=== PATIENT | female | born 1995 | race Caucasian/White ===

== ENCOUNTER → 2018-08-12 | Outpatient (REF) | payer BC | LOC: M LAB REF 19:25 | DX: R30.0 Dysuria (principal) | CPT/HCPCS: 87086 ==

== ENCOUNTER → 2020-07-13 | Outpatient (REF) | payer OTHER | LOC: M LAB REF 12:47 | PROVIDERS: ATTEND Obstetrics & Gynecology | DX: Z34.83 Encounter for supervision of other normal pregnancy, third trimester (principal) ==

== ENCOUNTER → 2020-07-27 | Outpatient (REF) | payer OTHER | LOC: M LAB REF 12:15 | PROVIDERS: ATTEND Obstetrics & Gynecology | DX: Z34.83 Encounter for supervision of other normal pregnancy, third trimester (principal); Z3A.00 Weeks of gestation of pregnancy not specified ==

== ENCOUNTER 2020-08-23 06:59 | Inpatient (IN) | payer BC, OTHER ==
[~2020-08-23] VITALS: Ht 157.5 cm; Wt 76.8 kg
[2020-08-23] VITALS (55 sets, daily range): BP systolic 92–153; BP diastolic 56–100
[2020-08-23 08:46] LABS: HEMATOCRIT 33.5 % (36.0-47.0); HEMOGLOBIN 10.5 g/dl (12.0-15.5); MEAN CORPUSCULAR HEMOGLOBIN 28.3 pg (27.0-33.0); MEAN CORPUSCULAR HGB CONC 31.3 g/dl (32.0-36.5); MEAN CORPUSCULAR VOLUME 90.3 fl (80.0-96.0); PLATELET COUNT, AUTOMATED 242 10^3/uL (150-450); RED BLOOD COUNT 3.71 10^6/uL (4.00-5.40); WHITE BLOOD COUNT 11.5 10^3/uL (4.0-10.0)
[2020-08-23 09:04] LABS: ALT/SGPT 12 U/L (12-78); BILIRUBIN,TOTAL 0.2 MG/DL (0.2-1.0); CREATININE FOR GFR 0.64 MG/DL (0.55-1.30); GLOMERULAR FILTRATION RATE > 60.0 (>60); LDH LACTATE DEHYDROGENASE 191 U/L (84-246); URIC ACID 2.5 MG/DL (2.6-6.0)
[2020-08-23 10:19] LABS: CREATININE,RANDOM URINE 38.7 MG/DL; TOTAL PROTEIN,RANDOM URINE 17.2 MG/DL (0.0-12.0)
[2020-08-23] MEDS ORDERED: OXYTOCIN DRIP 30 UNITS in IV 1 EA IV SCH ×2 (11:30→21:32)
[2020-08-23] MEDS: LR 1,000 ML IV SCH ×2 (12:34→17:16)
--- NOTE | 2020-08-23 13:41 | HPE ---
HISTORY AND PHYSICAL DATE OF ADMISSION: 08/23/2020 HISTORY OF PRESENT ILLNESS: Chloe is a 24-year-old 1 para 0 who presents to Labor and Delivery today with a report of uncomfortable contractions every 5 to 6 minutes that started at 0200. She denies vaginal bleeding. No leakage of fluid. The fetus has been active. Her care was initiated at [facility] in the first trimester with a transfer of care to [facility] in the third trimester and again a transfer of care in the third trimester to [facility]. course complicated by today's presentation of elevated blood pressure. OBSTETRIC HISTORY: Primigravida. OBSTETRIC LABS: AB positive, antibody screen negative. Syphilis negative. Hep B surface antigen negative. Hepatitis C antibody negative. Gonorrhea and chlamydia negative. Cystic fibrosis carrier screening negative. Quad screen normal. No HIV available for review. Urine culture negative. GBS negative. PAST MEDICAL HISTORY: Noncontributory. PAST SURGICAL HISTORY: None. FAMILY HISTORY: Noncontributory. SOCIAL HISTORY: The patient is . Father of the baby is present. She is a nonsmoker. Denies alcohol and drug use. No history of sexually transmitted infections. She denies a history of abuse, physical, sexual and emotional. ALLERGIES: No known drug allergies. CURRENT MEDICATIONS: 1. vitamins. OBJECTIVE: VITAL SIGNS: Upon arrival blood pressure 120/96, 139/100, 122/78, 124/79, 153/96, temperature 98.5, pulse 84, respirations 18. heart rate 140 with moderate variability. Positive accelerations. Negative decelerations. Contractions every 1 to 4. ABDOMEN: Gravid, cephalic presentation. Estimated weight 7 pounds. GENITALIA: Sterile vaginal exam at 0800, 1 cm dilated, 75% effaced, -2 station. Sterile vaginal exam repeated three hours later at 1100, 2 cm dilated, 80 effaced, -2 station. LABORATORY DATA: Preeclamptic labs returned normal results, hemoglobin 10.5, hematocrit 33.5, platelets 242,000. Spot urine for protein 0.44. ASSESSMENT: Intrauterine at 39 and 6/7 weeks, heart rate Category 1, preeclampsia. PLAN: Admit the patient to Labor and Delivery. Augment her labor with IV Pitocin, a clear liquid diet. The risks, benefits and alternatives have been reviewed with the patient. All of her questions have been answered. She has verbally consented for emergency surgery, blood products if they are necessary. I do anticipate active labor and a spontaneous vaginal delivery.
[2020-08-23 14:28] LABS: HIV 1&2 SCREEN CENTAUR NEGATIVE (NEGATIVE)
[2020-08-23] MEDS ORDERED: FENTANYL 2MCG/ML ROPIVACAINE 0.2% IN 0.9% NACL 100ML IVBAG As Ordered ONE (15:45)
[2020-08-23] MEDS ORDERED: diphenhydrAMINE 50MG/ML VIAL (J1200) IV PRN (17:00)
[2020-08-23] MEDS ORDERED: ONDANSETRON 4MG/2ML VIAL IV PRN (17:00)
[2020-08-23] MEDS ORDERED: NALOXONE INJ 0.4MG/1ML VIAL (J2310 PER 1MG) IV PRN (17:00)
[2020-08-23] MEDS ORDERED: EPIDURAL COMMENT XX SCH (17:00)
[2020-08-23] MEDS ORDERED: REFRIGERATOR IV KEYS XX PRN (17:00)
[2020-08-23] MEDS ORDERED: LACTATED RINGER'S 1000 ML IV PRN (17:00)
[2020-08-23] MEDS ORDERED: EPIDURAL/PCA KEYS XX PRN (17:00)
[2020-08-23] MEDS ORDERED: FENTANYL/ROPIVACAINE/NACL BAG 100 ML EPIDURAL SCH (17:00)
[2020-08-23] MEDS: ePHEDrine SULFATE 25 MG/5 ML(5MG/ML) SYRINGE IV PRN ×2 (17:40→18:37)
[2020-08-23] MEDS ORDERED: MEASLES,MUMPS,RUBELLA VACCINE INJ (MMR-II) (90707) SC SCH (21:45)
[2020-08-23] MEDS ORDERED: DOCUSATE SODIUM 100MG CAPSULE PO PRN (21:45)
[2020-08-23] MEDS ORDERED: ACETAMINOPHEN 500 MG TAB PO PRN (21:45)
[2020-08-23] MEDS ORDERED: ACETAMINOPHEN TAB 650MG DOSE (2X325MG) PO PRN (21:45)
[2020-08-23] MEDS ORDERED: BENZOCAINE 20% HEMORRHOIDAL OINTMENT 28GM TUBE TOP PRN (21:45)
[2020-08-23] MEDS ORDERED: IBUPROFEN 600MG TAB PO PRN (21:45)
[2020-08-23] MEDS ORDERED: RHOGAM 300 MCG (1500 IU) INJ (J2790) IM SCH (21:45)
--- NOTE | 2020-08-23 22:18 | DN ---
DELIVERY NOTE DATE OF DELIVERY: 08/23/2020 TIME OF : 2105 DESCRIPTION OF DELIVERY: Chloe is a 24-year-old, 1, para 1, 0, 0, 1 now, who was admitted to labor and delivery in early latent labor, and diagnosed with preeclampsia. I.V. Pitocin was used and labor did ensue. She used an epidural for her labor coping. She reached complete dilation at 2045. She had assisted rupture of small amount of clear odorless fluid at 2052. She pushed to a normal spontaneous vaginal delivery of a live female infant in OA position with restitution to ROT position at 2105. There was a nuchal cord times one, loose, that was reduced manually. The 's shoulders delivered spontaneously and the corpus immediately followed. Her mouth and nares were bulb suctioned, and she was placed on the maternal abdomen, crying and active. The cord was clamped x2 once pulsations ceased and cut by the father of the baby under my direction. A spontaneous expulsion of an intact placenta with three-vessel cord by Schultze mechanism was at 2118. Uterine hemostasis achieved with I.V. Pitocin, rapid infusion and uterine fundal massage. Estimated blood loss 300 mL. Perineum and vagina inspected, noted to have bilateral labial lacerations. Lacerations were repaired with 3-0 Vicryl Rapide in the usual fashion. [place] female weighed 6 pounds 10 ounces (3000 grams), Apgars 9 and 9. Mom is going to breastfeed her daughter and the family have named her Astrid. At the close of delivery, lab counts, needle counts and instrument counts were correct and verified.
[2020-08-24 00:05] VITALS: BP 127/80
[2020-08-24 06:00] VITALS: BP 120/76
[2020-08-24 08:30] VITALS: BP 120/76
[2020-08-24] MEDS: PRENATAL VITAMINS CHEWABLE TABLET PO SCH (10:04)
[2020-08-24 17:55] VITALS: BP 124/82
[2020-08-24] MEDS: IBUPROFEN 800 MG TAB PO PRN (18:01)
[2020-08-25 05:55] VITALS: BP 114/71
--- NOTE | 2020-08-25 06:19 | IPNPDOC ---
Progress Note Date of Service: Aug 25, 2020 Day#: 2 Progress Note PPD 2 SUBJECT: Chloe is a 24yo s/p uncomplicated at 2106 on 08/23 after undergoing IOL for pre-E at term. She is doing well day # 2. She has been ambulating, voiding spontaneously without issue and tolerating regular diet. Breast feeding without issue. Reports lochia is like a normal period, tapering. No f/c/n/v/CP/SOB. No TOMPKINS/vision changes/RUQ pain. OBJECTIVE: VITAL SIGNS: Within normal limits, afebrile. Alert and oriented times three. Abdomen: Fundus firm at U-2. Soft, NTTP. Extremities: no pain with palpation of calves ASSESSMENT: Chloe is a 24yo s/p uncomplicated at 2106 on 08/23 after undergoing IOL for pre-E at term. She is doing well day # 2. Vitals within normal limits, afebrile, hemodynamically stable with no evidence of infection. No s/sx of worsening pre-E. PLAN: 1. Discharge to home today. 2. Tylenol and Motrin for pain. 3. Encourage breast feeding and ambulation. 4. Desires Mirena IUD for contraception 5. BP check at [facility] clinic on Friday or Friday of coming week, then routine PP visit in 6 weeks in clinic. 6. Discussed return precautions at length. Elizabeth Delgadillo MD VS, I&O, 24H, Fishbone Vital Signs/I&O Vital Signs Date Time Temp Pulse Resp B/P (MAP) Pulse Ox O2 Delivery O2 Flow Rate FiO2 08/25/20 05:55 98.2 63 18 114/71 (85) I&O- Last 24 Hours up to 6 AM 08/25/20 06:00 Intake Total 700 ml Balance 700 ml Elizabeth Delgadillo MD Aug 25, 2020 06:19
--- NOTE | 2020-08-25 06:25 | DS.PDOC ---
Discharge Summary General Date of Admission Aug 23, 2020 at 11:01 Date of Discharge Aug 25, 2020 Discharge Summary PROCEDURES PERFORMED DURING STAY: spontaneous vaginal delivery ADMITTING DIAGNOSES: 1. pre-eclampsia at term IOL DISCHARGE DIAGNOSES: 1. pre-eclampsia at term IOL 2. delivered COMPLICATIONS/CHIEF COMPLAINT: Admit Pre E. HISTORY OF PRESENT ILLNESS/HOSPITAL COURSE: Chloe is a 24yo s/p uncomplicated at 2106 on 08/23 after undergoing IOL for pre-E at term. She is doing well day # 2. Vitals within normal limits, afebrile, hemodynamically stable with no evidence of infection. No s/sx of worsening pre-E. DISCHARGE MEDICATIONS: Please see below. ALLERGIES: Please see below. PHYSICAL EXAMINATION ON DISCHARGE: VITAL SIGNS: Within normal limits, afebrile. Alert and oriented times three. Abdomen: Fundus firm at U-2. Soft, NTTP. Extremities: no pain with palpation of calves LABORATORY DATA: Please see below. ACTIVITY: As tolerated, vaginal rest 6 weeks DIET: regular DISPOSITION: home DISCHARGE PLAN/INSTRUCTIONS: 1. Discharge to home today. 2. Tylenol and Motrin for pain. 3. Encourage breast feeding and ambulation. 4. Desires Mirena IUD for contraception 5. BP check at [facility] clinic on Friday or Friday of coming week, then routine PP visit in 6 weeks in clinic. 6. Discussed return precautions at length. DISCHARGE CONDITION: Stable TIME SPENT ON DISCHARGE: Greater than 20 minutes. Elizabeth Delgadillo MD Vital Signs/I&Os Vital Signs Date Time Temp Pulse Resp B/P (MAP) Pulse Ox O2 Delivery O2 Flow Rate FiO2 08/25/20 05:55 98.2 63 18 114/71 (85) I&O- Last 24 Hours up to 6 AM 08/25/20 06:00 Intake Total 700 ml Balance 700 ml Allergies Coded Allergies: No Known Allergies (Unverified , 08/23/20) Elizabeth Delgadillo MD Aug 25, 2020 06:25
[2020-08-25] MEDS ORDERED: IBUP80TA PO (06:26)
[2020-08-25] MEDS ORDERED: DOK1CAP7 PO (06:26)
[2020-08-25] MEDS: PRENATAL VITAMINS CHEWABLE TABLET PO SCH (07:51)
[2020-08-25] MEDS: IBUPROFEN 800 MG TAB PO PRN (07:51)
== END 2020-08-25 13:43 | disposition home or self-care (01) | DRG 560 ==
LOC: M LDO 06:59 → M LDI 11:01 → M OBS 08-24 00:02
PROVIDERS: ADMIT Advanced Practice Midwife; ATTEND Advanced Practice Midwife
PROC: 10E0XZZ Delivery of Products of Conception, External Approach (ICD-10-PCS; principal; 2020-08-23)
PROC: 0HQ9XZZ Repair Perineum Skin, External Approach (ICD-10-PCS; 2020-08-23)
PROC: 10907ZC Drainage of Amniotic Fluid, Therapeutic from Products of Conception, Via Natural or Artificial Opening (ICD-10-PCS; 2020-08-23)
DX: O14.94 Unspecified pre-eclampsia, complicating childbirth (principal); O70.0 First degree perineal laceration during delivery; Z3A.39 39 weeks gestation of pregnancy; Z37.0 Single live birth

== ENCOUNTER → 2020-11-23 | Outpatient (REF) | payer BC ==
[~2020-11-23] MED LIST: DOK1CAP7 PO; IBUP80TA PO
== END ==
LOC: M LAB REF 16:33
PROVIDERS: ATTEND Physician Assistant
DX: R50.9 Fever, unspecified (principal)

== ENCOUNTER → 2021-11-22 | Outpatient (CLI) | payer OTHER ==
[~2021-11-22] MED LIST changes: +DOK1CAP4 PO; -DOK1CAP7 PO
[2021-11-22 13:12] LABS: HEMOGLOBIN 13.6 g/dl (12.0-15.5); MEAN CORPUSCULAR HEMOGLOBIN 29.6 pg (27.0-33.0); MEAN CORPUSCULAR VOLUME 87.1 fl (80.0-96.0); PLATELET COUNT, AUTOMATED 200 10^3/uL (150-450); RED BLOOD COUNT 4.59 10^6/uL (4.00-5.40); WHITE BLOOD COUNT 5.1 10^3/uL (4.0-10.0)
[2021-11-22 14:40] LABS: FREE T4 1.18 NG/DL (0.76-1.46); PROGESTERONE 0.26 NG/ML; THYROID STIMULATING HORMONE 1.32 uIU/ML (0.358-3.740)
[2021-11-22 14:47] LABS: GC DNA AMPLIFICATION NEGATIVE (NEGATIVE)
== END ==
LOC: M PLALAB 10:44
PROVIDERS: ATTEND Obstetrics & Gynecology
DX: N93.9 Abnormal uterine and vaginal bleeding, unspecified (principal)

== ENCOUNTER → 2021-11-28 | Outpatient (CLI) | payer OTHER | LOC: M WHC 11-26 07:43 | PROVIDERS: ATTEND Obstetrics & Gynecology | DX: N93.9 Abnormal uterine and vaginal bleeding, unspecified (principal) ==

== ENCOUNTER → 2022-02-06 | Outpatient (CLI) | payer MEDICAID, SELFPAY ==
[2022-02-06 17:37] LABS: BASO % 0.6 % (0.0-1.0); EOS # 0.1 10^3/uL (0.0-0.5); EOS % 1.9 % (0.0-3.0); HEMATOCRIT 37.4 % (36.0-47.0); HEMOGLOBIN 12.6 g/dl (12.0-15.5); LYMPH % 31.6 % (24.0-44.0); MEAN CORPUSCULAR HEMOGLOBIN 29.9 pg (27.0-33.0); MEAN CORPUSCULAR HGB CONC 33.7 g/dl (32.0-36.5); MEAN CORPUSCULAR VOLUME 88.8 fl (80.0-96.0); MONO # 0.6 10^3/uL (0.0-0.8); MONO % 9.6 % (2.0-8.0); NEUTROPHILS # 3.5 10^3/uL (1.5-8.5); PLATELET COUNT, AUTOMATED 254 10^3/uL (150-450); RED BLOOD COUNT 4.21 10^6/uL (4.00-5.40); WHITE BLOOD COUNT 6.3 10^3/uL (4.0-10.0)
[2022-02-06 17:57] LABS: CREATININE,RANDOM URINE 81.4 MG/DL; TOTAL PROTEIN,RANDOM URINE 17.3 MG/DL (0.0-12.0)
[2022-02-06 17:58] LABS: ALT/SGPT 10 U/L (12-78); BILIRUBIN,TOTAL 0.2 MG/DL (0.2-1.0); CREATININE FOR GFR 0.59 MG/DL (0.55-1.30); GLOMERULAR FILTRATION RATE > 60.0 (>60); LDH LACTATE DEHYDROGENASE 168 U/L (84-246)
[2022-02-06 18:47] LABS: HEPATITIS C VIRUS ABY INDEX 0.1 INDEX (<0.8)
[2022-02-06 18:48] LABS: HIV 1&2 SCREEN CENTAUR NEGATIVE (NEGATIVE)
[2022-02-06 19:05] LABS: GC DNA AMPLIFICATION NEGATIVE (NEGATIVE)
== END ==
LOC: M PLALAB 15:49
PROVIDERS: ATTEND Advanced Practice Midwife
DX: O09.291 Supervision of pregnancy with other poor reproductive or obstetric history, first trimester (principal)

== ENCOUNTER → 2022-04-05 | Outpatient (REF) | payer OTHER | LOC: M SFHCWAGY 16:41 | PROVIDERS: ATTEND Advanced Practice Midwife | DX: O09.292 Supervision of pregnancy with other poor reproductive or obstetric history, second trimester (principal) ==

== ENCOUNTER → 2022-06-13 | Outpatient (REF) | payer OTHER ==
[2022-06-13 13:15] LABS: HEMATOCRIT 32.3 % (36.0-47.0); HEMOGLOBIN 10.8 g/dl (12.0-15.5); MEAN CORPUSCULAR HEMOGLOBIN 31.4 pg (27.0-33.0); MEAN CORPUSCULAR HGB CONC 33.4 g/dl (32.0-36.5); MEAN CORPUSCULAR VOLUME 93.9 fl (80.0-96.0); PLATELET COUNT, AUTOMATED 249 10^3/uL (150-450); RED BLOOD COUNT 3.44 10^6/uL (4.00-5.40); WHITE BLOOD COUNT 11.1 10^3/uL (4.0-10.0)
[2022-06-13 15:47] LABS: GC DNA AMPLIFICATION NEGATIVE (NEGATIVE)
== END ==
LOC: M SFHCWAGY 12:43
PROVIDERS: ATTEND Advanced Practice Midwife
DX: O09.292 Supervision of pregnancy with other poor reproductive or obstetric history, second trimester (principal)

== ENCOUNTER → 2022-06-13 | Outpatient (CLI) | payer OTHER | LOC: M WHC 09:57 | PROVIDERS: ATTEND Advanced Practice Midwife | DX: O44.22 Partial placenta previa NOS or without hemorrhage, second trimester (principal); Z3A.27 27 weeks gestation of pregnancy ==

== ENCOUNTER → 2022-08-08 | Outpatient (REF) | payer OTHER | LOC: M PLALAB 10:15 | PROVIDERS: ATTEND Advanced Practice Midwife | DX: O09.293 Supervision of pregnancy with other poor reproductive or obstetric history, third trimester (principal) ==

== ENCOUNTER → 2023-02-12 | Outpatient (REF) | payer OTHER | LOC: M SFHCWAGY 13:01 | PROVIDERS: ATTEND Advanced Practice Midwife | DX: Z01.419 Encounter for gynecological examination (general) (routine) without abnormal findings (principal); Z12.4 Encounter for screening for malignant neoplasm of cervix; Z77.9 Other contact with and (suspected) exposures hazardous to health ==

== ENCOUNTER → 2023-10-22 | Outpatient (REF) | payer BC, OTHER | LOC: M LAB REF 17:20 | PROVIDERS: ATTEND Nurse Practitioner Family | DX: J02.9 Acute pharyngitis, unspecified (principal) ==

== ENCOUNTER → 2023-10-29 | Outpatient (REF) | payer BC ==
[2023-10-29 13:08] LABS: BASO % 0.2 % (0.0-1.0); EOS # 0.1 10^3/uL (0.0-0.5); EOS % 1.1 % (0.0-3.0); HEMATOCRIT 42.7 % (36.0-47.0); HEMOGLOBIN 14.4 g/dl (12.0-15.5); LYMPH # 2.3 10^3/uL (1.5-5.0); LYMPH % 19.5 % (24.0-44.0); MEAN CORPUSCULAR HEMOGLOBIN 29.7 pg (27.0-33.0); MEAN CORPUSCULAR HGB CONC 33.7 g/dl (32.0-36.5); MONO # 0.7 10^3/uL (0.0-0.8); MONO % 5.9 % (2.0-8.0); NEUTROPHILS # 8.6 10^3/uL (1.5-8.5); NEUTROPHILS % 72.9 % (36.0-66.0); PLATELET COUNT, AUTOMATED 332 10^3/uL (150-450); RED BLOOD COUNT 4.85 10^6/uL (4.00-5.40); WHITE BLOOD COUNT 11.8 10^3/uL (4.0-10.0)
[2023-10-29 13:38] LABS: ALBUMIN 4.2 G/DL (3.2-5.2); ALKALINE PHOSPHATASE 63 U/L (46-116); ALT/SGPT 10 U/L (7.0-40); AST/SGOT 15 U/L (<34); BILIRUBIN,TOTAL 0.6 MG/DL (0.3-1.2); BLOOD UREA NITROGEN 13 MG/DL (9-23); CALCIUM LEVEL 8.9 MG/DL (8.5-10.1); CARBON DIOXIDE LEVEL 29 MMOL/L (20-31); CHLORIDE LEVEL 104 MMOL/L (98-107); CHOLESTEROL LEVEL 159 MG/DL (<200); CHOLESTEROL RISK RATIO 3.93 (<5); CREATININE FOR GFR 0.76 MG/DL (0.55-1.30); GLOMERULAR FILTRATION RATE > 60.0 (>60); GLUCOSE, FASTING 81 MG/DL (60-100); HDL CHOLESTEROL 40.4 MG/DL (>40); LDL CHOLESTEROL 71.2 MG/DL (<100); MAGNESIUM LEVEL 1.8 MG/DL (1.8-2.4); NON-HDL-C 118.6 MG/DL; POTASSIUM SERUM 4.4 MMOL/L (3.5-5.1); SODIUM LEVEL 136 MMOL/L (136-145); TOTAL PROTEIN 7.4 G/DL (5.7-8.2); TRIGLYCERIDES LEVEL 237 MG/DL (<150)
[2023-10-29 13:40] LABS: THYROID STIMULATING HORMONE 1.317 uIU/ML (0.55-4.78); TOTAL 25(OH) VITAMIN D 28.9 NG/ML (20.0-100.0)
[2023-10-29 13:59] LABS: HEMOGLOBIN A1c 5.1 % (4.0-6.0)
== END ==
LOC: M LAB REF 12:22
PROVIDERS: ATTEND Nurse Practitioner Family
DX: E66.3 Overweight (principal); E55.9 Vitamin D deficiency, unspecified

== ENCOUNTER → 2023-11-17 | Outpatient (CLI) | payer BC | LOC: M RAD 17:04 | PROVIDERS: ATTEND Nurse Practitioner Family | DX: M25.531 Pain in right wrist (principal); M25.532 Pain in left wrist ==

== ENCOUNTER → 2024-02-27 | Outpatient (REF) | payer BC | LOC: M PLALAB 16:02 | PROVIDERS: ATTEND Advanced Practice Midwife | DX: R39.89 Other symptoms and signs involving the genitourinary system (principal) ==

== ENCOUNTER → 2024-03-19 | Outpatient (REF) | payer BC ==
[2024-03-22 13:27] LABS: SSA SJOGRENS A <1.0 NEG AI (<1.0 NEG); SSB SJOGRENS B <1.0 NEG AI (<1.0 NEG)
[2024-03-22 16:07] LABS: ANA SCREEN, IFA NEGATIVE (NEGATIVE)
== END ==
LOC: M LAB REF 12:26
PROVIDERS: ATTEND Nurse Practitioner Family
DX: M25.531 Pain in right wrist (principal); M25.532 Pain in left wrist

== ENCOUNTER → 2024-07-06 | Outpatient (REF) | payer BC ==
[2024-07-06 17:52] LABS: CHOLESTEROL RISK RATIO 3.55 (<5); HDL CHOLESTEROL 44.7 MG/DL (>40); LDL CHOLESTEROL 86.1 MG/DL (<100); NON-HDL-C 114.3 MG/DL
== END ==
LOC: M LAB REF 16:56
PROVIDERS: ATTEND Nurse Practitioner Family
DX: E66.3 Overweight (principal)

== ENCOUNTER → 2024-07-21 | Outpatient (REF) | payer BC | LOC: M LAB REF 12:56 | PROVIDERS: ATTEND Nurse Practitioner Family | DX: Z32.00 Encounter for pregnancy test, result unknown (principal) ==

== ENCOUNTER → 2024-09-10 | Outpatient (REF) | payer BC ==
[2024-09-10 13:49] LABS: BASO # 0.1 10^3/uL (0.0-0.2); BASO % 0.7 % (0.0-1.0); EOS # 0.1 10^3/uL (0.0-0.5); EOS % 1.2 % (0.0-3.0); HEMATOCRIT 40.8 % (36.0-47.0); HEMOGLOBIN 13.8 g/dl (12.0-15.5); LYMPH # 2.7 10^3/uL (1.5-5.0); LYMPH % 35.9 % (24.0-44.0); MEAN CORPUSCULAR HEMOGLOBIN 30.3 pg (27.0-33.0); MEAN CORPUSCULAR HGB CONC 33.8 g/dl (32.0-36.5); MEAN CORPUSCULAR VOLUME 89.5 fl (80.0-96.0); MONO # 0.5 10^3/uL (0.0-0.8); MONO % 6.6 % (2.0-8.0); NEUTROPHILS # 4.1 10^3/uL (1.5-8.5); NEUTROPHILS % 55.3 % (36.0-66.0); PLATELET COUNT, AUTOMATED 260 10^3/uL (150-450); RED BLOOD COUNT 4.56 10^6/uL (4.00-5.40); WHITE BLOOD COUNT 7.4 10^3/uL (4.0-10.0)
[2024-09-10 13:52] LABS: ALBUMIN 4.4 G/DL (3.2-5.2); ALKALINE PHOSPHATASE 61 U/L (35-104); ALT/SGPT 10 U/L (7.0-40); AST/SGOT 18 U/L (<34); BILIRUBIN,TOTAL 0.6 MG/DL (0.3-1.2); BLOOD UREA NITROGEN 9 MG/DL (9-23); CALCIUM LEVEL 9.7 MG/DL (8.5-10.1); CARBON DIOXIDE LEVEL 28 MMOL/L (20-31); CHLORIDE LEVEL 105 MMOL/L (98-107); CHOLESTEROL LEVEL 142 MG/DL (<200); CHOLESTEROL RISK RATIO 2.73 (<5); CREATININE FOR GFR 0.78 MG/DL (0.55-1.30); GLOMERULAR FILTRATION RATE > 60.0 (>60); GLUCOSE, FASTING 83 MG/DL (60-100); HDL CHOLESTEROL 51.9 MG/DL (>40); LDL CHOLESTEROL 71.5 MG/DL (<100); NON-HDL-C 90.1 MG/DL; SODIUM LEVEL 140 MMOL/L (136-145); TOTAL PROTEIN 7.5 G/DL (5.7-8.2); TRIGLYCERIDES LEVEL 93 MG/DL (<150)
[2024-09-10 13:54] LABS: THYROID STIMULATING HORMONE 2.595 uIU/ML (0.55-4.78)
== END ==
LOC: M LAB REF 11:51
PROVIDERS: ATTEND Nurse Practitioner Family
DX: E66.3 Overweight (principal)

== ENCOUNTER → 2025-03-16 | Outpatient (REF) | payer OTHER | LOC: M PLALAB 10:31 | PROVIDERS: ATTEND Advanced Practice Midwife | DX: Z12.4 Encounter for screening for malignant neoplasm of cervix (principal) ==

== ENCOUNTER → 2025-03-25 | Outpatient (CLI) | payer OTHER ==
[2025-03-25 13:23] LABS: ALT/SGPT 15 U/L (7.0-40); AST/SGOT 24 U/L (<34); CALCIUM LEVEL 9.3 MG/DL (8.5-10.1); CARBON DIOXIDE LEVEL 29 MMOL/L (20-31); CHLORIDE LEVEL 102 MMOL/L (98-107); CREATININE FOR GFR 0.78 MG/DL (0.55-1.30); GLOMERULAR FILTRATION RATE > 90.0 (>60); POTASSIUM SERUM 4.1 MMOL/L (3.5-5.1); SODIUM LEVEL 141 MMOL/L (136-145)
[2025-03-25 13:25] LABS: FREE T4 1.03 NG/DL (0.89-1.76)
[2025-03-25 13:29] LABS: HCG, SERUM QUALITATIVE NEGATIVE (NEGATIVE)
[2025-03-27 00:52] LABS: DEHYDROEPIANDROSTERONE SULFATE 205 mcg/dL (14-349)
== END ==
LOC: M PLALAB 10:55
PROVIDERS: ATTEND Advanced Practice Midwife
DX: N92.6 Irregular menstruation, unspecified (principal)